=== PATIENT | female | born 2000 | race Caucasian/White ===

== ENCOUNTER 2020-04-12 23:29 | Emergency (ER) | payer OTHER ==
[~2020-04-12] VITALS: Ht 180.3 cm; Wt 64.9 kg
[2020-04-12 23:42] VITALS: Ht 180.3 cm; Wt 64.9 kg
[2020-04-13 01:00] VITALS: BP 122/75
== END 2020-04-13 01:00 | disposition home or self-care (01) ==
LOC: ED 23:29
DX: M25.532 Pain in left wrist (principal); V48.5XXA Car driver injured in noncollision transport accident in traffic accident, initial encounter; Y93.I9 Activity, other involving external motion; Y92.411 Interstate highway as the place of occurrence of the external cause; Y99.8 Other external cause status